=== PATIENT | male | born 1985 | race Caucasian/White ===

== ENCOUNTER 2017-10-17 22:20 | Emergency (ER) | payer SELFPAY ==
[~2017-10-17] VITALS: Ht 177.8 cm; Wt 97.5 kg
[2017-10-17 22:28] VITALS: BP 153/87
--- NOTE | 2017-10-17 22:32 | NUR ---
PT AMBULATED TO ER BED 5.
--- NOTE | 2017-10-17 23:06 | NUR ---
PT C/O RT LEG ANKLE PAIN W/ REDNESS. PT STATES HE HAD SURGERY ON HIS ANKLE 3 YEARS AGO AND ABOUT A MONTH AGO HE HAD SOME D/C FROM INCISION SITE. NO OPEN SKIN OR D/C NOTED AT THIS TIME. REDNESS NOTED TO ANKLE AND 2 SITES OF REDNESS CONTINUING UP LEG TO LOWER THIGH. +CMS. PT HAS PAIN TO ANKLE W/ AMBULATION. NO PMH
--- NOTE | 2017-10-17 23:15 | NUR ---
PT LEFT WITH OUT BEING SEEN.
== END 2017-10-17 23:15 | disposition left against medical advice (07) ==
LOC: MED 22:20
DX: M79.661 Pain in right lower leg (principal); Z53.21 Procedure and treatment not carried out due to patient leaving prior to being seen by health care provider

== ENCOUNTER 2023-12-08 16:42 | Emergency (ER) | payer MEDICAID ==
[~2023-12-08] VITALS: Ht 175.3 cm; Wt 86.2 kg
[2023-12-08 16:48] VITALS: BP 132/80; PULSE 125; RESP 24; TEMP 97.3; O2SAT 97
== END 2023-12-08 18:17 ==
LOC: MED 16:42
DX: F15.129 Other stimulant abuse with intoxication, unspecified (principal); F10.129 Alcohol abuse with intoxication, unspecified; R00.0 Tachycardia, unspecified; Y90.9 Presence of alcohol in blood, level not specified
CPT/HCPCS: 71045; 90471; 90715; 93005; 99283